=== PATIENT | male | born 1965 | race Caucasian/White ===

== ENCOUNTER 2018-05-24 12:58 | Emergency (ER) | END 2018-05-24 13:12 | disposition left against medical advice (07) | LOC: ER 12:58 | DX: Z53.21 Procedure and treatment not carried out due to patient leaving prior to being seen by health care provider (principal) ==

== ENCOUNTER 2018-05-24 14:09 | Emergency (ER) | payer SELFPAY ==
--- NOTE | 2018-05-24 15:11 | ER Document Report ---
ED Medical Screen (RME) - General Chief Complaint: Abdominal Pain Stated Complaint: VOMITING Time Seen by Provider: 05/24/18 15:07 Notes: Patient is quite angry, I walked in to see the patient and he stated that he did not think anybody cared about him. I offered to see the patient and he refused, stated that he would rather see the patient what our the doctor who already picked up his chart. Patient states he thinks he has a perforated bowel and is having chest pain. TRAVEL OUTSIDE OF THE [place] IN LAST 30 DAYS: No - Related Data Allergies/Adverse Reactions: fentanyl Allergy (Verified 05/24/18 12:59) ibuprofen Allergy (Verified 05/24/18 12:59) promethazine [From Phenergan] Allergy (Verified 05/24/18 12:59) IVP DYE Allergy (Uncoded 05/24/18 12:59) Past Medical History - Social History Chew tobacco use (# tins/day): No Frequency of alcohol use: None Drug Abuse: None - Past Medical History Cardiac Medical History: Reports: Hx Hypertension Pulmonary Medical History: Reports: Hx COPD Renal/ Medical History: Denies: Hx Peritoneal Dialysis Past Surgical History: Reports: Hx Abdominal Surgery Physical Exam - Notes Notes: Standing in the door, holding his belly, yelling, abdomen looks somewhat distended but will not allow me to examine him. Acute abdominal series has been put in for possible free air.
--- NOTE | 2018-05-24 15:19 | ER Document Report ---
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 13 stomach surgery with hx perforated bowels. Was hospitalized for 3- 4 months for perf bowel from obstruction, released 2 weeks ago. c/0 abdominal pain, distention for 8 hours, vomiting blood, "stomach killing me", hx htn, anemia, right testicle cancer. Last bm 2 days ago and it was diarrhea-short gut syndrome Allergic to fentanyl, ibuprofen. Usually gets Dilaudid. Was in hospital ER in [place] yesterday and they could not get an IV, he left after 35 IV sticks. Someone drove him from [place] to attend to his mother' s Pt is dictating what can and can not be done. He states "it sucks to be me". Will not let us look for peripheral veins without US, sending for AAS due to the distention. TRAVEL OUTSIDE OF THE [place] IN LAST 30 DAYS: No - Related Data Allergies/Adverse Reactions: fentanyl Allergy (Verified 05/24/18 12:59) ibuprofen Allergy (Verified 05/24/18 12:59) promethazine [From Phenergan] Allergy (Verified 05/24/18 12:59) IVP DYE Allergy (Uncoded 05/24/18 12:59) Past Medical History - General Information source: Patient - Social History Smoking Status: Current Every Day Smoker Chew tobacco use (# tins/day): No Frequency of alcohol use: None Drug Abuse: None Lives with: Alone Family History: Reviewed & Not Pertinent Patient has suicidal ideation: No Patient has homicidal ideation: No - Past Medical History Cardiac Medical History: Reports: Hx Hypertension Pulmonary Medical History: Reports: Hx COPD Renal/ Medical History: Denies: Hx Peritoneal Dialysis Malignancy Medical History: Reports Hx Testicular Cancer, Reports Other - Carcinoid cancer Past Surgical History: Reports: Hx Abdominal Surgery - For bowel obstructions perforation and peritonitis x 14 Review of Systems - Review of Systems Constitutional: No symptoms reported EENT: No symptoms reported Cardiovascular: No symptoms reported Respiratory: No symptoms reported Gastrointestinal: See HPI Genitourinary: No symptoms reported Male Genitourinary: No symptoms reported Musculoskeletal: No symptoms reported Skin: No symptoms reported Hematologic/Lymphatic: No symptoms reported Neurological/Psychological: No symptoms reported Physical Exam - Vital signs Vitals: Temp Pulse Resp BP Pulse Ox 98.3 F 70 20 116/79 98 05/24/18 14:10 05/24/18 14:10 05/24/18 14:10 05/24/18 14:10 05/24/18 14:10 Interpretation: Normal - General General appearance: Alert, Other - Pale In distress: Moderate - HEENT Head: Normocephalic, Atraumatic Eyes: Normal Conjunctiva: Normal Pupils: PERRL Mucous membranes: Dry Pharynx: Normal Neck: Supple. No: Lymphadenopathy - Respiratory Respiratory status: No respiratory distress Chest status: Nontender Breath sounds: Normal Chest palpation: Normal - Cardiovascular Rhythm: Regular Heart sounds: Normal auscultation Murmur: No - Abdominal Inspection: Other - Multiple scars Distension: Distended, Tympanitic Bowel sounds: Normal - Rectal Tenderness: No Stool: Heme negative, Other - soft small amount in rectum - Back Back: Normal, Nontender. No: CVA tenderness - Extremities General upper extremity: Normal inspection, Nontender, Normal color, Normal ROM , Normal temperature General lower extremity: Normal inspection, Nontender, Normal color, Normal ROM , Normal temperature, Normal weight bearing. No: Altagracia's sign - Neurological Neuro grossly intact: Yes Cognition: Normal Orientation: AAOx4 [place] Coma Scale Eye Opening: Spontaneous [place] Coma Scale Verbal: Oriented [place] Coma Scale Motor: Obeys Commands Arabella Coma Scale Total: 15 Speech: Normal Motor strength normal: LUE, RUE, LLE, RLE Sensory: Normal - Psychological Associated symptoms: Irritable, Uncooperative - Skin Skin Temperature: Warm Skin Moisture: Dry Skin Color: Normal Skin irregularity: negative: Rash Course - Re-evaluation Re-evalutation: 05/24/18 16:12 The acute abdomen shows a lot of gas but no x-ray evidence of obstruction. He states they usually have to give an NG tube and Dulcolax suppositories and he has to walk around for 2 days. He drank a gallon of GoLYTELY before coming to the emergency room and that is why he started vomiting. He is asked to 3 times again while I was in the room that I order something for pain. He states rectal tubes have not worked in the past. He states if the Dulcolax does not get him to start pooping then they usually have to cut him because it is a bowel obstruction. 05/24/18 16:[address] Rosenbaum he was in the emergency room and he recommended Dulcolax suppositories and NG tube and needs to be admitted by the hospitalist for ileus. Patient is asking for Dilaudid 2 mg IV. 05/24/18 16:51 Stool for Hemoccult is negative. 05/24/18 17:47 Patient jumped up from the bed started to pull everything out stating that he is not waiting until 11:00 to determine whether he will be admitted or not. The hospitalist that I discussed the case with Dr. Cruz wanted the CT scan before determining if the patient can be admitted here or not. I discussed with him that I called Dr. Rosenbaum back in we will get the CT scan without contrast and get the NG tube placed. He again is asking for Dilaudid. The hospitalist that I called for admission for ileus Dr. Cruz wants to see CT scan results. The patient states he has anaphylaxis to IV and oral contrast so I have ordered an noncontrasted CT abdomen and pelvis and the patient is placing his own NG tube. Patient is willing to stay if the CT does not show an obstruction. 05/24/18 18:18 Patient is hollering and wants another nurse he states the nurse lied to him about ice chips. Another nurse is giving him the pain medication we will reconnect the IV fluid and NG tube and get him down the CT scan as soon as possible. 05/24/18 18:36 Patient's IV infiltrated with an attempt to irrigate and get it to function normally so that he can get another dose of pain medication. He jumped up the IV infiltrated and he pulled his NG tube out his IV out and states he wants to know how far away [facility] is he understands that the risks are he repeated them to me actually bowel rupture infection . He continues to interrupt me and not allow me to finish advising him of his risks. And he is leaving he is refusing to sign the AGAINST MEDICAL ADVICE form the second nurse and the charge nurse in the room with the patient during this conversation. - Vital Signs Vital signs: Temp Pulse Resp BP Pulse Ox 98.3 F 70 20 116/79 98 05/24/18 14:10 05/24/18 14:10 05/24/18 14:10 05/24/18 14:10 05/24/18 14:10 - Laboratory Result Diagrams: 05/24/18 16:15 05/24/18 16:15 Laboratory results interpreted by me: 05/24/18 05/24/18 16:15 16:15 RBC 3.41 L Hgb 7.9 L Hct 25.3 L MCV 74 L MCH 23.3 L MCHC 31.4 L RDW 20.3 H Seg Neutrophils % 79.0 H Lymphocytes % 9.2 L Absolute Lymphocytes 0.4 L Sodium 146.5 H Potassium 3.2 L Chloride 109 H Discharge - Discharge Clinical Impression: Abdominal distention, Ileus, Anemia Vomiting Qualifiers: Vomiting type: hematemesis Nausea presence: with nausea Qualified Code(s): K92.0 - Hematemesis Condition: Stable Disposition: AGAINST MEDICAL ADVICE
[2018-05-24] MEDS ORDERED: NORMAL SALINE 1000 ML 1,000 ML IV ONE (15:28)
[2018-05-24] MEDS ORDERED: NORMAL SALINE 1000 ML 500 ML IV ONE ×2 (15:28→18:22)
[2018-05-24] MEDS ORDERED: ONDANSETRON 4 MG TAB.RAPDIS PO ONE (15:30)
[2018-05-24] MEDS ORDERED: HYDROMORPHONE HCL INJ/PF 2 MG/ML AMPULE IM ONE (15:30)
[2018-05-24 15:36] VITALS: BP 116/79
--- NOTE | 2018-05-24 15:54 | RADIOLOGY REPORT (SQ) ---
EXAM DESCRIPTION: ACUTE ABDOMEN SERIES COMPLETED DATE/TIME: 05/24/2018 3:43 pm REASON FOR STUDY: possible perfed bowel COMPARISON: None. NUMBER OF VIEWS: Three views. TECHNIQUE: Frontal chest, supine abdomen and upright/decubitus abdomen radiographic images acquired. LIMITATIONS: None. FINDINGS: CHEST: Lungs clear of infiltrates. FREE AIR: None. No abnormal gas collections. BOWEL GAS PATTERN: Nonobstructive pattern. No dilated loops or air fluid levels. CALCIFICATIONS: No suspicious calcifications. HARDWARE: None in the abdomen. SOFT TISSUES: No gross mass or suggestion of organomegaly. BONES: No acute fracture. No worrisome bone lesions. OTHER: No other significant finding. IMPRESSION: NO RADIOGRAPHIC EVIDENCE FOR ACUTE ABDOMINAL DISEASE. TECHNICAL DOCUMENTATION: JOB ID: [id number] [employer]- All Rights Reserved Reading location - IP/workstation name: [email or web address]
[2018-05-24] MEDS ORDERED: HYDROMORPHONE HCL INJ/PF 2 MG/ML AMPULE IV ONE ×3 (16:26→18:21)
[2018-05-24] MEDS ORDERED: BISACODYL 10 MG SUPP.RECT PR ONE (16:30)
[2018-05-24 16:56] LABS: ALANINE AMINOTRANSFERASE 28 U/L (21-72); ALBUMIN 3.7 g/dL (3.5-5.0); ALKALINE PHOSPHATASE 63 U/L (38-126); ANION GAP 13 (5-19); ASPARTATE AMINO TRANSFERASE 24 U/L (17-59); BILIRUBIN,DIRECT 0.2 mg/dL (0.0-0.4); BILIRUBIN,TOTAL 0.3 mg/dL (0.2-1.3); BLOOD UREA NITROGEN 15 mg/dL (7-20); CALCIUM 8.7 mg/dL (8.4-10.2); CARBON DIOXIDE 25 mmol/L (22-30); CHLORIDE 109 mmol/L (98-107); GLUCOSE 105 mg/dL (75-110); LIPASE 93.8 U/L (23-300); POTASSIUM 3.2 mmol/L (3.6-5.0); SODIUM 146.5 mmol/L (137-145); TOTAL PROTEIN 6.3 g/dL (6.3-8.2)
[2018-05-24 17:06] LABS: ABSOLUTE LYMPHOCYTES (AUTO) 0.4 10^3/uL (0.5-4.7); ABSOLUTE MONOCYTES (AUTO) 0.4 10^3/uL (0.1-1.4); ABSOLUTE NEUT (AUTO) 3.3 10^3/uL (1.7-8.2); BASOPHILS % (AUTO) 0.5 % (0-2); HEMATOCRIT 25.3 % (37.9-51.0); LYMPHOCYTES % (AUTO) 9.2 % (13-45); MEAN CORPUSCULAR HEMOGLOBIN 23.3 pg (27.0-33.4); MEAN CORPUSCULAR HGB CONC 31.4 g/dL (32.0-36.0); MEAN CORPUSCULAR VOLUME 74 fl (80-97); MONOCYTES % (AUTO) 10.3 % (3-13); PLATELET COUNT 176 10^3/uL (150-450); RED BLOOD COUNT 3.41 10^6/uL (4.35-5.55); RED CELL DISTRIBUTION WIDTH 20.3 % (11.5-14.0); TOTAL CELLS COUNTED % (AUTO) 100 %; WHITE BLOOD COUNT 4.2 10^3/uL (4.0-10.5)
[2018-05-24 17:09] LABS: HEMOGLOBIN 7.9 g/dL (13.5-17.0)
[2018-05-24 18:05] LABS: APPEARANCE,URINE SLIGHTLY-CLOUDY; BILIRUBIN,URINE NEGATIVE (NEGATIVE); CALCIUM OXALATE CRYSTALS,URINE FEW /HPF; COLOR,URINE YELLOW; GLUCOSE, URINE NEGATIVE (NEGATIVE); KETONES,URINE NEGATIVE (NEGATIVE); LEUKOCYTE ESTERASE,URINE NEGATIVE (NEGATIVE); NITRITE,URINE NEGATIVE (NEGATIVE); PROTEIN,URINE NEGATIVE (NEGATIVE); URINE SPECIFIC GRAVITY 1.021; UROBILINOGEN,URINE NEGATIVE mg/dL (<2.0)
[2018-05-24 18:11] LABS: URINE AMPHETAMINES SCREEN NEGATIVE; URINE BARBITURATES SCREEN NEGATIVE; URINE BENZODIAZEPINES SCREEN NEGATIVE; URINE COCAINE SCREEN NEGATIVE; URINE MARIJUANA (THC) SCREEN NEGATIVE; URINE METHADONE SCREEN NEGATIVE; URINE PHENCYCLIDINE SCREEN NEGATIVE
--- NOTE | 2018-05-24 22:41 | PDOC CONSULTATION ---
Consultation Consult Date: 05/24/18 Consult reason:: vomiting, ileus History of Present Illness Admission Date/PCP: 05/24/18 Patient complains of: vomiting History of Present Illness: MICKEY CONDON is a 53 year old male with multiple operations in the past for GI carcinoid,lung cancer and testicular cancer. He was in a hospital in [place] staying for about 3 months and recently discharged to attend to mother's here in [place]. He has been vomiting with abdominal pains. He is asking for 2 mgs of Dilaudid since 1 mg does not work for him. Past Medical History Cardiac Medical History: Reports: Hypertension Pulmonary Medical History: Reports: Chronic Obstructive Pulmonary Disease (COPD) Malignancy Medical History: Reports: Other - Carcinoid cancer Hematology: Reports: Anemia Past Surgical History Past Surgical History: Reports: Other - abdominal surgery for bowel perforation. Lung ca operation and testicular Social History Lives with: Alone Smoking Status: Current Every Day Smoker Family History Family History: Reviewed & Not Pertinent Parental Family History Reviewed: Yes Children Family History Reviewed: No Sibling(s) Family History Reviewed.: No Medication/Allergy Allergies/Adverse Reactions: fentanyl Allergy (Verified 05/24/18 12:59) ibuprofen Allergy (Verified 05/24/18 12:59) promethazine [From Phenergan] Allergy (Verified 05/24/18 12:59) IVP DYE Allergy (Uncoded 05/24/18 12:59) Review of Systems Constitutional: PRESENT: other - no fever/chills Eyes: PRESENT: other - no visual/hearing changes Cardiovascular: PRESENT: other - no cough/chest pains Gastrointestinal: PRESENT: abdominal pain, nausea, vomiting Genitourinary: PRESENT: other - no dysuria Physical Exam Vital Signs: Temp Pulse Resp BP Pulse Ox 98.3 F 70 20 116/79 98 05/24/18 14:10 05/24/18 14:10 05/24/18 14:10 05/24/18 14:10 05/24/18 14:10 Intake & Output 05/23/18 05/24/18 05/25/18 06:59 06:59 06:59 Weight 70.307 kg General appearance: PRESENT: mild distress Head exam: PRESENT: atraumatic Eye exam: PRESENT: conjunctiva pink Mouth exam: PRESENT: moist Neck exam: PRESENT: full ROM Respiratory exam: PRESENT: clear to auscultation booker Cardiovascular exam: PRESENT: RRR Pulses: PRESENT: normal radial pulses Vascular exam: PRESENT: normal capillary refill GI/Abdominal exam: PRESENT: firm, tenderness - diffuse Rectal exam: PRESENT: deferred Extremities exam: PRESENT: full ROM Musculoskeletal exam: PRESENT: ambulatory Neurological exam: PRESENT: alert, oriented to person, oriented to place, oriented to time, oriented to situation Psychiatric exam: PRESENT: agitated Skin exam: PRESENT: normal color, warm Results Laboratory Results: 05/24/18 16:15 05/24/18 16:15 05/24/18 05/24/18 05/24/18 16:15 16:15 16:15 WBC 4.2 RBC 3.41 L Hgb 7.9 L Hct 25.3 L MCV 74 L MCH 23.3 L MCHC 31.4 L RDW 20.3 H Plt Count 176 Seg Neutrophils % 79.0 H Lymphocytes % 9.2 L Monocytes % 10.3 Eosinophils % 1.0 Basophils % 0.5 Absolute Neutrophils 3.3 Absolute Lymphocytes 0.4 L Absolute Monocytes 0.4 Absolute Eosinophils 0.0 Absolute Basophils 0.0 Sodium 146.5 H Potassium 3.2 L Chloride 109 H Carbon Dioxide 25 Anion Gap 13 BUN 15 Creatinine 0.77 Est GFR ( Amer) > 60 Est GFR (Non-Af Amer) > 60 Glucose 105 Calcium 8.7 Total Bilirubin 0.3 AST 24 ALT 28 Alkaline Phosphatase 63 Total Protein 6.3 Albumin 3.7 Lipase 93.8 Urine Color Urine Appearance Urine pH Ur Specific [place] Urine Protein Urine Glucose (UA) Urine Ketones Urine Blood Urine Nitrite Ur Leukocyte Esterase Urine WBC (Auto) Urine RBC (Auto) Stool Occult Blood Blood Type O POSITIVE Antibody Screen NEGATIVE 05/24/18 05/24/18 16:35 17:15 WBC RBC Hgb Hct MCV MCH MCHC RDW Plt Count Seg Neutrophils % Lymphocytes % Monocytes % Eosinophils % Basophils % Absolute Neutrophils Absolute Lymphocytes Absolute Monocytes Absolute Eosinophils Absolute Basophils Sodium Potassium Chloride Carbon Dioxide Anion Gap BUN Creatinine Est GFR ( Amer) Est GFR (Non-Af Amer) Glucose Calcium Total Bilirubin AST ALT Alkaline Phosphatase Total Protein Albumin Lipase Urine Color YELLOW Urine Appearance SLIGHTLY-CLOUDY Urine pH 5.0 Ur Specific [place] 1.021 Urine Protein NEGATIVE Urine Glucose (UA) NEGATIVE Urine Ketones NEGATIVE Urine Blood NEGATIVE Urine Nitrite NEGATIVE Ur Leukocyte Esterase NEGATIVE Urine WBC (Auto) 2 Urine RBC (Auto) 8 Stool Occult Blood NEGATIVE Blood Type Antibody Screen 05/24/18 16:15 Troponin I 0.044 Impressions: Acute Abdomen Series 05/24/18 15:09 IMPRESSION: NO RADIOGRAPHIC EVIDENCE FOR ACUTE ABDOMINAL DISEASE. Assessment & Plan - Time Time Spent: 30 to 50 Minutes - Inpatient Certification Medical Necessity: Need For IV Fluids, Need for Pain Control, Need for IV Antibiotics - Plan Summary Plan Summary: Hospitalist may admit patient since there is no immediate need for surgery NGT and hydrate Addendum: Patient to have CT scan of abdomen per Hospitalist. Patient was impatient. Some problems with IV Decided to leave against medical advice. He has inquired about how far [facility] from here.
== END 2018-05-24 18:38 | disposition left against medical advice (07) ==
LOC: ER 14:09
DX: K56.7 Ileus, unspecified (principal); K92.0 Hematemesis; K91.2 Postsurgical malabsorption, not elsewhere classified; D64.9 Anemia, unspecified; R14.0 Abdominal distension (gaseous); F17.200 Nicotine dependence, unspecified, uncomplicated; J44.9 Chronic obstructive pulmonary disease, unspecified; I10 Essential (primary) hypertension; Z85.47 Personal history of malignant neoplasm of testis; Z98.890 Other specified postprocedural states; Z87.19 Personal history of other diseases of the digestive system; Z88.6 Allergy status to analgesic agent; Z88.5 Allergy status to narcotic agent; Z88.8 Allergy status to other drugs, medicaments and biological substances; Z87.892 Personal history of anaphylaxis; Z91.041 Radiographic dye allergy status; Z53.29 Procedure and treatment not carried out because of patient's decision for other reasons
CPT/HCPCS: 96376; 99284; 96372; 96374; 86900; 86901; 36415; 86850; 83690; 85025; 82272; 80053; 81001; 84484; 80307; 74022; S0119; J1170; J7030